=== PATIENT | female | born 1965 | race African-American/Black ===

== ENCOUNTER 2021-09-08 15:03 | Emergency (ER) | payer SELFPAY ==
[~2021-09-08] VITALS: Ht 167.6 cm; Wt 55.0 kg
[2021-09-08 15:07] VITALS: BP 146/66
== END 2021-09-08 15:36 | disposition left against medical advice (07) ==
LOC: ER 15:03
DX: F10.10 Alcohol abuse, uncomplicated (principal); F19.10 Other psychoactive substance abuse, uncomplicated; Y90.9 Presence of alcohol in blood, level not specified
CPT/HCPCS: 99283